=== PATIENT | female | born 1950 | race Caucasian/White ===

== ENCOUNTER 2016-12-03 07:44 | Inpatient (IN) | payer OTHER ==
[2016-11-27 09:49] VITALS: BMI 27.0
--- NOTE | 2016-11-27 10:21 | PAT Medication Instructions ---
Service Date Nov 27, 2016. Current Home Medication List Calcium Carbonate (Tums), 2 TAB PO QAM Calcium Carbonate (Tums), 2 TAB PO QAM Diclofenac Sodium (Voltaren), 75 MG PO BID Multivitamin (Multivitamin), 1 TAB PO QAM Tramadol (Ultram), 50 MG PO Q8H PRN for Pain Medication Instructions For Your Scheduled Surgery - Check with surgeon for instructions: Diclofenac Sodium (Voltaren), 75 MG PO BID - Hold the following medications the morning of surgery: Calcium Carbonate (Tums), 2 TAB PO QAM Calcium Carbonate (Tums), 2 TAB PO QAM Multivitamin (Multivitamin), 1 TAB PO QAM - Take the following medications the morning of surgery with a sip of water: Tramadol (Ultram), 50 MG PO Q8H PRN for Pain i(okay to take up to 4 hours prior to surgery if needed) - Take the following medications as scheduled the night before surgery: Tramadol (Ultram), 50 MG PO Q8H PRN for Pain (if needed) If you have any questions please call us at [phone] or [phone] or [phone]
--- NOTE | 2016-11-27 11:13 | DIAGNOSTIC IMAGING REPORT ---
CHEST PREADMISSION(PA/LAT) CLINICAL HISTORY: 66 years-old Female presenting with preoperative assessment. TECHNIQUE: PA and lateral views of the chest were obtained. COMPARISON: None. FINDINGS: Atherosclerosis of the aortic arch. Mild tortuosity of the descending thoracic aorta. Cardiac silhouette normal in size. Bandlike opacity at the lingula. No other focal infiltrate. Pleural spaces clear. Osseous structures normal. Upper abdomen normal. IMPRESSION: 1. Minimal lingular atelectasis may be present. No significant cardiopulmonary disease. Electronically signed by: Devante Mtz M.D. 11/27/2016 11:12 AM Dictated Date/Time: 11/27/2016 11:11 AM
[2016-11-27 11:46] LABS: BASO % 0.3 %; BASO ABS # 0.03 K/uL (0-0.2); COMPLETE YES; HEMATOCRIT 42.5 % (37-47); IG% 0.3 %; LYMPH % 22.2 %; LYMPH ABS # 2.63 K/uL (1.2-3.4); MEAN CELL VOLUME 94.4 fL (80-100); MEAN CORPUSCULAR HEMOGLOBIN 31.1 pg (25-34); MEAN CORPUSCULAR HGB CONC 32.9 g/dl (32-36); MEAN PLATELET VOLUME 9.2 fL (7.4-10.4); MONO % 7.4 %; NEUT % 66.8 %; PLATELET COUNT 389 K/uL (130-400); WHITE BLOOD COUNT 11.83 K/uL (4.8-10.8)
[2016-11-27 11:52] LABS: ESTIMATED AVERAGE GLUCOSE 105 mg/dl; HA1C FLAG Normal (Normal)
[2016-11-27 12:00] LABS: BUN/CREATININE RATIO 22.3 (10-20); CREATININE 0.68 mg/dl (0.60-1.20); POTASSIUM 4.5 mmol/L (3.5-5.1)
[2016-11-27 12:04] LABS: PARTIAL THROMBOPLASTIN RATIO 1.1; PROTHROMBIN TIME (PATIENT) 10.2 SECONDS (9.0-12.0)
[2016-11-27 12:29] LABS: URINE APPEARANCE TURBID (CLEAR); URINE BILIRUBIN NEG (NEG); URINE COLOR YELLOW; URINE EPITHELIAL CELL AUTO >30 /lpf (0-5); URINE NITRITE NEG (NEG); URINE SPECIFIC GRAVITY 1.017 (1.000-1.030); UROBILINOGEN NEG (NEG)
[2016-11-27 12:46] LABS: MANUAL MICROSCOPIC REQUIRED? NO; REVIEW REQ? NO; SULFASALICYLIC ACID POS (NEG)
--- NOTE | 2016-11-30 09:57 | HISTORY & PHYSICAL EXAMINATION ---
DATE OF ADMISSION: 12/03/2016 CHIEF COMPLAINT: Right hip pain. HISTORY OF PRESENT ILLNESS: The patient is a 66-year-old female with known osteoarthritis about her right hip. She takes Voltaren daily for pain with mild relief. She has pain with activities of daily living. She has pain with prolonged weightbearing and standing activities. She has difficulty with any kneeling, bending, or squatting activities. Due to ongoing pain and disability, the patient now desires to proceed with right total hip arthroplasty. PAST MEDICAL HISTORY: Osteoporosis, allergic rhinitis, and hyperlipidemia. PAST SURGICAL HISTORY: Appendectomy, wrist surgery, and LEEP procedure. MEDICATIONS: Senna/docusate 8.6/50 mg daily, Voltaren 75 mg twice daily, Centrum Silver ultra woman's daily, calcium plus D daily, and tramadol 50 mg q. 8 hours p.r.n. pain. ALLERGIES: No known drug allergies. SOCIAL HISTORY AND REVIEW OF SYSTEMS: Noncontributory. PHYSICAL EXAMINATION: GENERAL: Well-nourished and well-developed female, who appears her stated age. HEENT: Normocephalic and atraumatic. Extraocular movements intact. Oropharynx is pink and moist. NECK: Supple without adenopathy. LUNGS: Clear to auscultation bilaterally. HEART: Regular rate and rhythm. ABDOMEN: Soft, nontender, and nondistended. EXTREMITIES: The upper extremities are within normal limits. The right hip demonstrates limited range of motion. There is limitation of active and passive internal/external rotation with pain at end range. X-RAYS: X-rays were reviewed. She has severe osteoarthritis about the right hip with complete loss of the joint space. There is flattening of the femoral head. There is osteophyte formation about the femoral head and acetabulum. ASSESSMENT: Right hip degenerative joint disease. PLAN: Risks versus benefits were discussed. Consent was obtained. The patient's primary care physician is Dr. Nemesio Contreras from [facility] in [place]. We will proceed with right total hip arthroplasty upon preoperative workup and medical clearance.
[~2016-12-03] VITALS: Ht 162.6 cm; Wt 72.6 kg
[2016-12-03] VITALS (8 sets, daily range): BP systolic 97–134; BP diastolic 61–98; PULSE 75–96; TEMP 36.3–36.8; O2SAT 93–98; Ht 162.6 cm; Wt 72.6 kg
[~2016-12-03 07:44] MED LIST: ACETAMINOPHEN 500 MG TAB PO SCH; CALC500C3 PO; CEFAZOLIN 2000 MG/60 ML D5W 60 ML IV SCH; CeleBREX 200 MG CAP PO SCH; DEXAMETHASONE 4 MG TAB PO SCH; DICL75TA2 PO; FAMOTIDINE 20 MG TAB PO SCH; FENTANYL CITRATE INJ 50 MCG/1 ML 2 ML VIAL ONE; GABAPENTIN 300 MG CAP PO SCH; LACTATED RINGER'S 1000ML 1,000 ML IV SCH; LACTATED RINGER'S 1000ML IV SCH; LACTATED RINGER'S 500 ML IV SCH; METOCLOPRAMIDE HCL 10 MG TAB PO SCH; MIDAZOLAM HCL 1 MG/ML 2ML VIAL ONE; MULT-506 PO; ROPIVACAINE 5MG/ML 30 ML 150 MG, BUPIVACAINE/EPINEPHR 0.5% MPF 30 ML, KETOROLAC TROMETH... INFIL SCH; TRAM-10 PO; TRANEXAMIC ACID INJ 1,000 MG in SODIUM CHLORIDE 0.9% 100ML 100 ML IV SCH
[2016-12-03] MEDS ORDERED: BUPIVACAINE 0.5 % 5 MG/1 ML PF 10ML VIAL ONE (08:00)
[2016-12-03] MEDS ORDERED: ONDANSETRON INJ 2 MG/ML 2 ML VIAL IV PRN ×2 (08:00→12:00)
[2016-12-03] MEDS ORDERED: ATROPINE SULFATE 0.1 MG/ML 5ML SYR IV PRN (08:00)
[2016-12-03] MEDS ORDERED: EpHEDrine SULFATE INJ 50 MG/ML AMP IV PRN (08:00)
[2016-12-03] MEDS ORDERED: FENTANYL CITRATE INJ 50 MCG/1 ML 2 ML VIAL IV PRN (08:00)
[2016-12-03] MEDS ORDERED: CALC1CHW47 PO (08:09)
--- NOTE | 2016-12-03 08:39 | History & Physical Bridge Note ---
H&P Re-Evaluation Bridge Note: I have examined the patient, reviewed the History & Physical and in the interval since the performance of the History & Physical I have noted the following changes of clinical significance: No changes noted
[2016-12-03] MEDS ORDERED: ORTHO JOINT ANESTHETIC ONE (08:56)
[2016-12-03] MEDS ORDERED: POVIDONE-IODINE OP SOLN 30 ML BTL ONE (08:57)
[2016-12-03] MEDS ORDERED: BACITRACIN 50000 UNIT VIAL ONE (08:57)
[2016-12-03] MEDS ORDERED: MIDAZOLAM HCL 1 MG/ML 2ML VIAL ONE (10:40)
[2016-12-03] MEDS ORDERED: PROPOFOL IV EMULSION 10 MG/ML 20 ML VIAL IV ONE (10:48)
[2016-12-03] MEDS ORDERED: PHENYLEPHRINE 100MCG/ML 5ML SYR ONE (10:48)
[2016-12-03] MEDS ORDERED: EpHEDrine SULFATE 50MG/5ML SYR ONE (11:00)
--- NOTE | 2016-12-03 11:27 | [facility] Post Operative Brief Note ---
Immediate Operative Summary Operative Date Dec 03, 2016. Pre-Operative Diagnosis Right hip degenerative joint disease Post-Operative Diagnosis Right hip degenerative joint disease Procedure(s) Performed Right Total Hip Arthroplasty Surgeon Dr. Carr Torque Tester Surgeon(s) John Jarvis PA-C Estimated Blood Loss 150 ML Findings Severe OA with osteopenia Specimens a. right femoral head Complication(s) None Disposition Recovery Room / PACU
--- NOTE | 2016-12-03 11:44 | OPERATIVE REPORT ---
DATE OF OPERATION: 12/03/2016 PREOPERATIVE DIAGNOSIS: Osteoarthritis, right hip. POSTOPERATIVE DIAGNOSIS: Osteoarthritis, right hip. PROCEDURE: Right connective total hip arthroplasty. SURGEON: Dr. Carr. TIMBER TRIMMER: John Jarvis PA-C. ANESTHESIA: Spinal. COMPLICATIONS: None. IMPLANTS USED: Acetabular reamer used 52, acetabular shell 52, femoral stem 6 increased offset neck and femoral head +2.5 x 36 mm ceramic. DESCRIPTION OF PROCEDURE: Following induction of adequate spinal anesthesia, the patient was placed in left lateral decubitus position and right Arlette-Langenbeck incision was made. Subcutaneous tissue was sharply dissected. Electrocautery used for hemostasis. The fascia was incised throughout the length of the wound and a bar scissor placed beneath the short external rotators. The pyriformis was tagged with #1 Vicryl. The short external rotators were divided from the posterior aspect of the femur using electrocautery. These were swept posteriorly. A T-capsulotomy incision was made and the hip was dislocated using a combination of flexion, adduction, and internal rotation. Exposure of the femoral neck with old-style Hohmann and a blunt Hohmann was carried out and a femoral rasp was utilized as a guide for making the appropriate level femoral neck cut. This bone fragment was removed and reserved on the back table. Next, attention was turned to the acetabulum where bone hook was used to retract the femur while the offset retractors were placed anterior and posteriorly. A double-angled Hohmann was placed in superior and anterior position exposing the acetabulum nicely. Acetabular labrum as well as posterior capsule elements were removed using a long knife and a long pickup. Fovea centralis was cleared of all soft tissue. Sequential reamings were carried up to a 52 and decision was made to proceed with impaction of a 52 trabecular metal cup. This was impacted and held using a single 35 mm bone screw. The acetabular liner was placed with 15 of elevated posterior wall in the superior and posterior position. Next, attention was turned to the femoral portion of the case where a Bovie and pickup was used to further clear short external rotators from their insertion on the femur. Box osteotome was used to gain access to the femoral canal and the T-handled rasp and a rattail rasp were used to further open and lateral the canal. Sequentially raspings were carried up to a 6, which gave good fit and fill of the proximal femur. A trial reduction was carried out and 6 offset femoral neck component was chosen as the size to be used. A +2.5 x 36 mm femoral head was impacted into position, +0 head was utilized. The trial reduction was stable in all degrees of rotation with no [id number] impingement. The hip was dislocated. The trial components were removed and the final femoral stem, neck, and femoral head combination were assembled on the back table and impacted into position. Hip was relocated. Range of motion checked once again successful and the wound was irrigated. The pyriformis repaired to the greater trochanter using #1 Vicryl [id number] suture. A Hemovac drain was placed and the fascia was closed using #1 Vicryl, subcutaneous tissue was closed using 0 Dexon, and skin was closed with nazanin. Sterile dressing of Adaptic, 4 x 4's, ABDs, and foam tape was applied. The patient tolerated the procedure well. Due to the complex nature of the procedure, the entire surgery was performed with the operational assistance of John Jarvis PA-C. The digital sales assistant, under direct supervision, was involved in the actual performance of all aspects of the surgical procedure including hemostasis, tissue retraction and incision, instrument management, patient positioning, and wound closure. DISPOSITION: Recovery room stable. I attest to the content of the Intraoperative Record and any orders documented therein. Any exception s are noted below.
[2016-12-03] MEDS ORDERED: ALUMINUM/MAGNESIUM/SIMETH (MAALOX MAX) 30 ML UDC PO PRN (12:00)
[2016-12-03] MEDS ORDERED: METOCLOPRAMIDE HCL INJ 5 MG/ML 2 ML VIAL IV PRN (12:00)
[2016-12-03] MEDS ORDERED: MAGNESIUM HYDROXIDE SUSP 30 ML UDC PO PRN (12:00)
[2016-12-03] MEDS ORDERED: MoRPHine SULFATE 2 MG/ML CARP IV PRN (12:00)
[2016-12-03] MEDS ORDERED: ZOLPIDEM TARTRATE 5 MG TAB PO PRN (12:00)
--- NOTE | 2016-12-03 13:07 | DIAGNOSTIC IMAGING REPORT ---
SINGLE VIEW PELVIS; SINGLE VIEW right HIP CLINICAL HISTORY: Postoperative examination. FINDINGS: An AP portable view of the hips and pelvis with a crosstable lateral portable view of the right hip are obtained. A bipolar right hip arthroplasty is in near-anatomic alignment. At least 2 cortical lag screws transfix the acetabular cup. No acute fracture is identified. There are expected postoperative changes overlying the right hip including subcutaneous gas, a surgical drain, and soft tissue swelling. IMPRESSION: Expected postoperative findings status post right hip arthroplasty. No acute fracture is seen. Electronically signed by: Buzz Lockhart M.D. 12/03/2016 1:06 PM Dictated Date/Time: 12/03/2016 1:03 PM
--- NOTE | 2016-12-03 13:15 | Anesthesiology Progress Note ---
Anesthesia Post Op Note Date & Time Dec 03, 2016 at 13:14 Vital Signs Pain Intensity: 0 Vital Signs Past 12 Hours Date Time Temp Pulse Resp B/P (MAP) Pulse Ox O2 Delivery O2 Flow Rate FiO2 12/03/16 12:37 78 21 99 12/03/16 12:37 78 21 12/03/16 12:36 116/74 12/03/16 12:32 81 17 98 12/03/16 12:32 81 17 12/03/16 12:31 114/84 12/03/16 12:27 75 14 99 12/03/16 12:27 76 14 12/03/16 12:25 123/61 12/03/16 12:22 78 18 100 12/03/16 12:22 79 18 12/03/16 12:20 108/79 12/03/16 12:17 73 14 100 12/03/16 12:17 74 14 12/03/16 12:16 81 22 12/03/16 12:16 82 22 100 12/03/16 12:15 116/67 12/03/16 12:11 75 15 125/77 100 12/03/16 12:11 77 15 12/03/16 12:06 76 17 12/03/16 12:06 76 17 100 12/03/16 12:05 131/81 12/03/16 12:04 73 16 99 12/03/16 12:04 74 16 12/03/16 12:00 125/79 12/03/16 11:59 84 19 95 12/03/16 11:59 83 19 12/03/16 11:55 113/75 12/03/16 11:54 36.6 89 16 106/76 97 Nasal Cannula 2 12/03/16 11:54 82 13 106/76 96 12/03/16 11:54 81 13 12/03/16 08:11 36.8 75 20 125/98 98 Room Air Notes Mental Status: alert / awake / arousable, participated in evaluation Pt Amnestic to Procedure: Yes Nausea / Vomiting: adequately controlled Pain: adequately controlled Airway Patency, RR, SpO2: stable & adequate BP & HR: stable & adequate Hydration State: stable & adequate Neuraxial Anesthesia: was administered, sensory block is resolving Anesthetic Complications: no major complications apparent
[2016-12-03] MEDS ORDERED: MoRPHine SULFATE 4 MG/ML 1 ML CARP\\VIAL IV PRN (13:30)
[2016-12-03] MEDS ORDERED: MoRPHine SULFATE 10 MG/ML CARP/VIAL IV PRN (13:30)
[2016-12-03] MEDS: D5W AND 1/2NSS + 20MEQ KCL 1,000 ML IV SCH (15:11)
[2016-12-03] MEDS: KETOROLAC TROMETHAMINE 15 MG/ML VIAL IV. SCH ×2 (15:54→21:38)
[2016-12-03] MEDS: FERROUS GLUCONATE 324 MG TAB PO SCH (17:44)
[2016-12-03] MEDS: CEFAZOLIN IV 1,000 MG in DEXTROSE 5% 50ML 50 ML IV SCH (17:45)
[2016-12-03] MEDS: OXYCODONE HCL IR 5 MG TAB (IMMEDIATE RELEASE) PO PRN (19:50)
[2016-12-03] MEDS: PREGABALIN 75 MG CAP PO SCH (21:12)
[2016-12-03] MEDS: ASPIRIN 81 MG ECTAB PO SCH (21:13)
[2016-12-03] MEDS: DOCUSATE SODIUM 100 MG CAP PO SCH (21:13)
[2016-12-03] MEDS: ACETAMINOPHEN 500 MG TAB PO SCH (21:38)
[2016-12-04] MEDS: D5W AND 1/2NSS + 20MEQ KCL 1,000 ML IV SCH ×2 (00:14→12:28)
[2016-12-04] MEDS: CEFAZOLIN IV 1,000 MG in DEXTROSE 5% 50ML 50 ML IV SCH (02:07)
[2016-12-04 03:10] VITALS: BP 107/67; PULSE 81; TEMP 36.7; O2SAT 94
[2016-12-04] MEDS: KETOROLAC TROMETHAMINE 15 MG/ML VIAL IV. SCH ×2 (03:16→10:12)
[2016-12-04] MEDS: ACETAMINOPHEN 500 MG TAB PO SCH ×3 (05:45→21:49)
[2016-12-04 05:52] LABS: BASO % 0.1 %; BASO ABS # 0.01 K/uL (0-0.2); COMPLETE YES; EOS % 0.2 %; HEMATOCRIT 31.9 % (37-47); IG% 0.5 %; LYMPH % 10.9 %; LYMPH ABS # 1.79 K/uL (1.2-3.4); MEAN CELL VOLUME 91.7 fL (80-100); MEAN CORPUSCULAR HGB CONC 33.9 g/dl (32-36); MONO % 13.5 %; NEUT % 74.8 %; PLATELET COUNT 335 K/uL (130-400); RED BLOOD COUNT 3.48 M/uL (4.2-5.4); WHITE BLOOD COUNT 16.47 K/uL (4.8-10.8)
[2016-12-04] MEDS ORDERED: ROPIVACAINE 5MG/ML 30 ML 150 MG, BUPIVACAINE/EPINEPHR 0.5% MPF 30 ML, KETOROLAC TROMETH... INFIL SCH ×7 (06:00)
[2016-12-04 06:36] LABS: BUN/CREATININE RATIO 18.5 (10-20); CALCIUM 8.3 mg/dl (8.5-10.1); CREATININE 0.84 mg/dl (0.60-1.20); POTASSIUM 4.2 mmol/L (3.5-5.1)
[2016-12-04 07:20] VITALS: BP 117/74; PULSE 75; TEMP 36.8; O2SAT 99
[2016-12-04] MEDS ORDERED: DEXAMETHASONE INJ 10 MG in SYRINGE 0 ML IV SCH (07:30)
[2016-12-04] MEDS: ASPIRIN 81 MG ECTAB PO SCH ×2 (09:08→20:40)
[2016-12-04] MEDS: DOCUSATE SODIUM 100 MG CAP PO SCH ×2 (09:08→20:40)
[2016-12-04] MEDS: FERROUS GLUCONATE 324 MG TAB PO SCH ×3 (09:08→17:15)
[2016-12-04] MEDS: PANTOprazole SOD 40 MG TAB PO SCH (09:09)
[2016-12-04] MEDS: PREGABALIN 75 MG CAP PO SCH ×2 (09:09→20:41)
[2016-12-04] MEDS: MULTIVITAMIN TAB PO SCH (09:09)
[2016-12-04] MEDS: OXYCODONE HCL IR 5 MG TAB (IMMEDIATE RELEASE) PO PRN ×3 (09:10→21:49)
--- NOTE | 2016-12-04 09:25 | Orthopedic Progress Note ---
Orthopedic Progress Note Date of Service Dec 04, 2016. Subjective Post OP Day: 1 Reports: feeling well, Denies: chest pain, SOB, nausea / vomiting, light headedness, calf pain Objective calves soft nontender, N/V intact, hip located, dressing C/D/I, A&O x3, toes mobile, hemovac drainage (115/50cc per shift) Date Time Temp Pulse Resp B/P (MAP) Pulse Ox O2 Delivery O2 Flow Rate FiO2 12/04/16 07:50 Room Air 12/04/16 07:20 36.8 75 16 117/74 (88) 99 Room Air 12/04/16 03:10 36.7 81 16 107/67 (80) 94 Room Air 12/04/16 00:15 Room Air 12/03/16 23:03 36.8 79 16 97/61 (73) 96 Room Air 12/03/16 19:35 36.8 91 16 117/74 (88) 96 Room Air 12/03/16 17:00 96 16 134/77 (96) 12/03/16 16:05 36.5 94 16 115/79 (91) 94 Room Air 12/03/16 15:21 Room Air 12/03/16 14:30 36.6 76 16 121/83 (96) 95 Room Air 12/03/16 13:59 36.3 84 16 121/81 (94) 93 Room Air 12/03/16 13:30 36.4 85 16 131/77 (95) 97 Nasal Cannula 2.0 12/03/16 13:30 Nasal Cannula 2.0 12/03/16 13:30 Nasal Cannula 2.0 12/03/16 13:25 36.6 108/70 12/03/16 13:23 83 17 99 12/03/16 13:23 82 17 12/03/16 13:21 116/73 12/03/16 13:18 84 15 99 12/03/16 13:18 81 15 12/03/16 13:15 114/67 12/03/16 13:13 91 26 99 12/03/16 13:13 89 26 12/03/16 13:10 117/77 12/03/16 13:08 82 16 12/03/16 13:08 81 16 99 12/03/16 13:05 117/76 12/03/16 13:03 80 16 12/03/16 13:03 79 16 99 12/03/16 13:00 96/80 12/03/16 12:58 82 19 12/03/16 12:58 81 19 99 12/03/16 12:55 107/71 12/03/16 12:53 82 16 99 12/03/16 12:53 82 16 12/03/16 12:50 102/84 12/03/16 12:48 78 22 99 12/03/16 12:48 78 22 12/03/16 12:46 120/77 12/03/16 12:43 80 14 12/03/16 12:43 80 14 99 12/03/16 12:40 125/79 12/03/16 12:38 79 18 12/03/16 12:38 79 18 99 12/03/16 12:37 78 21 99 12/03/16 12:37 78 21 12/03/16 12:36 116/74 12/03/16 12:32 81 17 98 12/03/16 12:32 81 17 12/03/16 12:31 114/84 12/03/16 12:27 75 14 99 12/03/16 12:27 76 14 12/03/16 12:25 123/61 12/03/16 12:22 78 18 100 12/03/16 12:22 79 18 12/03/16 12:20 108/79 12/03/16 12:17 73 14 100 12/03/16 12:17 74 14 12/03/16 12:16 81 22 12/03/16 12:16 82 22 100 12/03/16 12:15 116/67 12/03/16 12:11 75 15 125/77 100 12/03/16 12:11 77 15 12/03/16 12:06 76 17 12/03/16 12:06 76 17 100 12/03/16 12:05 131/81 12/03/16 12:04 73 16 99 12/03/16 12:04 74 16 12/03/16 12:00 125/79 12/03/16 11:59 84 19 95 12/03/16 11:59 83 19 12/03/16 11:55 113/75 12/03/16 11:54 36.6 89 16 106/76 97 Nasal Cannula 2 12/03/16 11:54 82 13 106/76 96 12/03/16 11:54 81 13 Laboratory Results 24 Hours: Test 12/04/16 05:08 White Blood Count 16.47 K/uL Red Blood Count 3.48 M/uL Hemoglobin 10.8 g/dL Hematocrit 31.9 % Mean Corpuscular Volume 91.7 fL Mean Corpuscular Hemoglobin 31.0 pg Mean Corpuscular Hemoglobin Concent 33.9 g/dl Platelet Count 335 K/uL Mean Platelet Volume 9.0 fL Neutrophils (%) (Auto) 74.8 % Lymphocytes (%) (Auto) 10.9 % Monocytes (%) (Auto) 13.5 % Eosinophils (%) (Auto) 0.2 % Basophils (%) (Auto) 0.1 % Neutrophils # (Auto) 12.34 K/uL Lymphocytes # (Auto) 1.79 K/uL Monocytes # (Auto) 2.22 K/uL Eosinophils # (Auto) 0.03 K/uL Basophils # (Auto) 0.01 K/uL Assessment & Plan Assessment: POD#1 sp right LIZZ Inhouse Planning Pain Management: Celebrex, PO Tylenol, Oxy IR DVT Prophylaxis: TEDs, SCDs, ASA Discharge Planning Discharge Planning: home with home health ([facility]
[2016-12-04 12:50] VITALS: BP 155/84; PULSE 81; TEMP 36.9; O2SAT 93
[2016-12-04 15:02] VITALS: BP 104/65; PULSE 69; TEMP 36.6; O2SAT 96
[2016-12-04] MEDS: CeleBREX 200 MG CAP PO SCH (20:41)
[2016-12-04 23:02] VITALS: BP 114/77; PULSE 74; TEMP 36.8; O2SAT 98
[2016-12-05] MEDS: ACETAMINOPHEN 500 MG TAB PO SCH (06:19)
[2016-12-05] MEDS: OXYCODONE HCL IR 5 MG TAB (IMMEDIATE RELEASE) PO PRN (06:19)
[2016-12-05 07:04] VITALS: BP 124/83; PULSE 70; TEMP 36.9; O2SAT 95
--- NOTE | 2016-12-05 07:35 | Orthopedic Progress Note ---
Orthopedic Progress Note Date of Service Dec 05, 2016. Subjective Post OP Day: 2 Reports: feeling well, Denies: chest pain, SOB, nausea / vomiting, light headedness, calf pain Objective calves soft nontender, N/V intact, hip located, dressing C/D/I (SILVERLON), A&O x3, toes mobile Date Time Temp Pulse Resp B/P (MAP) Pulse Ox O2 Delivery O2 Flow Rate FiO2 12/05/16 07:04 36.9 70 16 124/83 (97) 95 Room Air 12/04/16 23:40 Room Air 12/04/16 23:02 36.8 74 16 114/77 (89) 98 Room Air 12/04/16 15:30 Room Air 12/04/16 15:02 36.6 69 16 104/65 (78) 96 Room Air 12/04/16 12:50 36.9 81 16 155/84 (107) 93 Room Air 12/04/16 07:50 Room Air Assessment & Plan Assessment: POD#2 sp right LIZZ Inhouse Planning Pain Management: Celebrex, PO Tylenol, Oxy IR DVT Prophylaxis: TEDs, SCDs, ASA Discharge Planning Discharge Planning: home with home health ([facility]
[2016-12-05] MEDS ORDERED: ACET-24 PO (07:40)
[2016-12-05] MEDS ORDERED: ONDA8TAB6 PO (07:40)
[2016-12-05] MEDS ORDERED: CLB200 PO (07:40)
[2016-12-05] MEDS ORDERED: ASPEC81 PO (07:40)
[2016-12-05] MEDS ORDERED: RXC5 PO (07:40)
--- NOTE | 2016-12-05 07:41 | Discharge Instructions ---
Discharge Instructions Date of Service Dec 05, 2016. Admission Reason for Admission: Right Hip Osteoarthritis Discharge Discharge Diagnosis / Problem: SP RIGHT LIZZ Discharge Goals Goal(s): Decrease discomfort, Improve function, Increase independence Activity Recommendations Activity Limitations: per Instructions/Follow-up section . Instructions / Follow-Up Instructions / Follow-Up ACTIVITY RECOMMENDATIONS: SELF CARE INSTRUCTIONS AFTER TOTAL HIP REPLACEMENT Until the incision and soft tissues around your hip have healed, there is a possibility that the hip prosthesis could dislocate. A. Observe the following precautions to prevent dislocation: 1. Don't bend your hip greater than 90 degrees. 2. Avoid crossing your legs or ankles while standing or lying. 3. Sit with your feet placed 6 inches apart. 4. When sitting, keep your knees below your hips. Sit on a firm surface, avoid deep, soft chairs and couches. Use an elevated toilet seat in the bathroom. 5. Don't bend over at the waist. Use a long handled shoehorn and a sock aid to help you put on your shoes and socks. A consulting systems engineer can help you picking supervisor objects that are too high or too low to reach. 6. Keep car riding to a minimum for at least one month after surgery. B. Your balance may be shaky for a while. Use crutches or a walker until directed by your doctor. C. Use hand rails when walking on stairs. D. Wear low heeled shoes with non-slip soles. E. Be sure that your floors are free of things that could trip you - throw rugs , electrical cords, small objects. Avoid wet and waxed floors, especially with crutches and canes. F. Try to walk several times a day with rest periods between. G. Continue with all the exercises taught to you in the hospital. Again, make walking a part of your daily routine. SPECIAL CARE INSTRUCTIONS: VERY IMPORTANT TO READ AND REVIEW A. You may still be at risk for phlebitis and blood clots. 1. Wear surgical stockings (JOSE MANUEL hose) for 2 weeks after surgery to improve circulation and reduce swelling. 2. Take Aspirin 81mg twice daily for 4 weeks or as directed by your doctor. This is your blood thinner. 3. High risk patients may be prescribed a stronger blood thinner if necessary. 4. If you are on Coumadin normally, your family doctor/home attendant should monitor your blood work. Expect a phone call the day of or the day after bloodwork is drawn to adjust your dosage. B. You must take antibiotics before having dental work, bladder, bowel and other surgery. Your doctor will provide you with a permanent card to carry describing precautions. C. Call [facility] if you have a fever, redness or swelling around the incision, cloudy drainage from incision, or sudden increase in pain in your hip, not relieved by your regular pain medication. D. Please call the office at if you have any concerns or questions about your operation or recovery. * YOU MAY SHOWER, NO TUB BATHS UNTIL CLEARED BY YOUR DOCTOR. * WEAR JOSE MANUEL HOSE 20 HOURS PER DAY FOR 2 WEEKS. * YOU SHOULD USE A WALKER OR CRUTCHES FOR 2-4 WEEKS. THIS WILL HELP PREVENT STRAIN ON YOUR HIP MUSCLE AND ALLOW IT TO HEAL PROPERLY. YOU MAY WEAN TO A CANE TOLERATED. * MOST PATIENTS WILL HAVE HOME NURSING FOR THERAPY. IF YOU DECIDE TO DO OUTPATIENT PHYSICAL THERAPY, PLEASE SCHEDULE THIS 3 TIMES PER WEEK. * YOU MAY HAVE A LARGE, BAND-ANA LIKE DRESSING (SILVERON). THIS WILL REMAIN ON YOUR INCISION FOR 7 DAYS, THEN CAN BE REMOVED. IF INCISION IS LEAKING THROUGH DRESSING, PLEASE CALL THE OFFICE . FOLLOW UP VISIT: If appointment is not already scheduled: Please call [facility] to make a follow-up appointment for 2 weeks after your surgery at . Current Hospital Diet Patient's current hospital diet: Regular Diet Discharge Diet Recommended Diet: Regular Diet Procedures Procedures Performed: Right Total Hip Arthroplasty Pending Studies Studies pending at discharge: no Laboratory Results Hemoglobin A1c Test 11/27/16 11:34 Range/Units Estimated Average Glucose 105 mg/dl Hemoglobin A1c 5.3 4.5-5.6 % Medical Emergencies . Who to Call and When: Medical Emergencies: If at any time you feel your situation is an emergency, please call 911 immediately. . Non-Emergent Contact Non-Emergency issues call your: Surgeon . "Provider Documentation" section prepared by Liss Bustillo. . VTE Core Measure Inpt VTE Proph given/why not?: Other Anticoagulation, T.E.D. Stockings, SCD's
[2016-12-05] MEDS: CeleBREX 200 MG CAP PO SCH (08:44)
[2016-12-05] MEDS: PREGABALIN 75 MG CAP PO SCH (08:44)
[2016-12-05] MEDS: MULTIVITAMIN TAB PO SCH (08:44)
[2016-12-05] MEDS: PANTOprazole SOD 40 MG TAB PO SCH (08:44)
[2016-12-05] MEDS: FERROUS GLUCONATE 324 MG TAB PO SCH (08:45)
[2016-12-05] MEDS: DOCUSATE SODIUM 100 MG CAP PO SCH (08:45)
[2016-12-05] MEDS: ASPIRIN 81 MG ECTAB PO SCH (08:45)
[2016-12-05 09:34] VITALS: BP 124/83; PULSE 70; TEMP 36.9; O2SAT 95
--- NOTE | 2016-12-14 17:45 | DISCHARGE SUMMARY ---
CHIEF COMPLAINT: Right hip pain. Please see complete history and physical examination. HOSPITAL COURSE: The patient underwent right total hip arthroplasty without complication. She tolerated the procedure well and was discharged to recovery room in stable condition. Her postoperative course was relatively uneventful. Her postoperative pain was reasonably well controlled with a combination of spinal anesthesia, intraoperative joint injection, IV, and oral pain medications. She was started on aspirin for DVT prophylaxis. She also utilized JOSE MANUEL stockings and SCDs for additional prophylaxis. Her H&H was stable and did not require transfusion. Her surgical drain was discontinued by postoperative day 2, her surgical dressing will remain in place for approximately 7 days postoperative. She tolerated postop physical therapy reasonably well where she was ambulating and transferring appropriately. She was observing all total hip precautions. She was discharged home on postoperative day 2. She will continue her physical therapy at home. She will continue her aspirin for DVT prophylaxis and follow up in our office in approximately 10-14 days for initial postop evaluation.
[2017-01-24] MEDS ORDERED: NAPR1TAB9 PO (07:36)
== END 2016-12-05 11:05 | disposition home health service (06) | DRG 470 ==
LOC: C.ACU 07:44 → C.3E 08:35 → ENRESERV 13:16
PROC: 0SR90JZ Replacement of Right Hip Joint with Synthetic Substitute, Open Approach (ICD-10-PCS; principal; 2016-12-03 10:15)
DX: M16.11 Unilateral primary osteoarthritis, right hip (principal); M81.0 Age-related osteoporosis without current pathological fracture; Z79.899 Other long term (current) drug therapy

== ENCOUNTER → 2017-02-11 | Outpatient (CLI) | payer OTHER ==
[~2017-02-11] MED LIST changes: -ACETAMINOPHEN 500 MG TAB PO SCH; +CALC1CHW47 PO; -CEFAZOLIN 2000 MG/60 ML D5W 60 ML IV SCH; -CeleBREX 200 MG CAP PO SCH; -DEXAMETHASONE 4 MG TAB PO SCH; -DICL75TA2 PO; -FAMOTIDINE 20 MG TAB PO SCH; -FENTANYL CITRATE INJ 50 MCG/1 ML 2 ML VIAL ONE; -GABAPENTIN 300 MG CAP PO SCH; -LACTATED RINGER'S 1000ML 1,000 ML IV SCH; -LACTATED RINGER'S 1000ML IV SCH; -LACTATED RINGER'S 500 ML IV SCH; -METOCLOPRAMIDE HCL 10 MG TAB PO SCH; -MIDAZOLAM HCL 1 MG/ML 2ML VIAL ONE; +NAPR1TAB9 PO; +ONDA8TAB6 PO; -ROPIVACAINE 5MG/ML 30 ML 150 MG, BUPIVACAINE/EPINEPHR 0.5% MPF 30 ML, KETOROLAC TROMETH... INFIL SCH; -TRAM-10 PO; -TRANEXAMIC ACID INJ 1,000 MG in SODIUM CHLORIDE 0.9% 100ML 100 ML IV SCH
[2017-02-11 12:46] LABS: BASO % 0.6 %; BASO ABS # 0.05 K/uL (0-0.2); COMPLETE YES; EOS % 4.3 %; IG% 0.2 %; LYMPH % 28.6 %; LYMPH ABS # 2.31 K/uL (1.2-3.4); MEAN CELL VOLUME 91.3 fL (80-100); MEAN CORPUSCULAR HEMOGLOBIN 29.2 pg (25-34); MEAN PLATELET VOLUME 9.2 fL (7.4-10.4); MONO % 10.8 %; NEUT % 55.5 %; PLATELET COUNT 377 K/uL (130-400); RED BLOOD COUNT 4.93 M/uL (4.2-5.4); WHITE BLOOD COUNT 8.09 K/uL (4.8-10.8)
[2017-02-11 12:53] LABS: INR 0.9 (0.9-1.1)
[2017-02-11 13:16] LABS: ESTIMATED AVERAGE GLUCOSE 100 mg/dl; HA1C FLAG Normal (Normal)
[2017-02-11 13:24] LABS: BLOOD UREA NITROGEN 17 mg/dl (7-18); BUN/CREATININE RATIO 19.8 (10-20); CARBON DIOXIDE 27 mmol/L (21-32); CHLORIDE 104 mmol/L (98-107); CREATININE 0.85 mg/dl (0.60-1.20); GLUCOSE 86 mg/dl (70-99); POTASSIUM 3.9 mmol/L (3.5-5.1); SODIUM 138 mmol/L (136-145)
[2017-02-11 18:02] LABS: MANUAL MICROSCOPIC REQUIRED? NO; REVIEW REQ? NO; URINE APPEARANCE CLEAR (CLEAR); URINE BILIRUBIN NEG (NEG); URINE COLOR YELLOW; URINE EPITHELIAL CELL AUTO >30 /lpf (0-5); URINE NITRITE NEG (NEG); UROBILINOGEN NEG (NEG); ZZUR CULT IF INDIC CLEAN CATCH NO
--- NOTE | 2017-02-20 07:10 | CODING QUERY MEDICAL NECESSITY ---
SUPPORTING DIAGNOSIS NEEDED A supporting diagnosis is required for the test/procedure performed on this patient in order for us to be reimbursed by the patient's insurance. Please provide a supporting diagnosis for the following test/procedure listed below next to the test name along with your signature. *If there is no additional diagnosis for this patient that would support the following test/procedure please document that below next to the test/procedure. Test(s)/Procedure(s) that require a supporting diagnosis: * HEMOGLOBIN A1C DIAGNOSIS: Provider Signature: Date: Thank you [employer] Once completed, please kindly fax back to [phone] For questions please call [phone]
== END | disposition home or self-care (01) ==
LOC: C.LABMFLN 08:26
DX: Z01.818 Encounter for other preprocedural examination (principal)

== ENCOUNTER 2017-02-25 09:49 | Inpatient (IN) | payer OTHER ==
[2017-01-24 07:39] VITALS: BMI 27.0
--- NOTE | 2017-02-22 12:33 | HISTORY & PHYSICAL EXAMINATION ---
DATE OF ADMISSION: 02/25/2017 CHIEF COMPLAINT: Left knee pain. HISTORY OF PRESENT ILLNESS: The patient is a 66-year-old female with known osteoarthritis about her bilateral knees, left worse than right. She had a recent right total hip arthroplasty, which has done well. She has had a previous corticosteroid injection in her knees. Due to ongoing pain and disability with daily activities, she now desires to proceed with left total knee arthroplasty. PAST MEDICAL HISTORY: Osteoporosis, allergic rhinitis, hearing loss, osteoarthritis, hyperlipidemia. PAST SURGICAL HISTORY: Appendectomy, hip replacement as above, wrist surgery, LEEP procedure. MEDICATIONS: Hydrochlorothiazide 12.5 mg daily, Centrum Silver, women's vitamin daily, calcium plus D 500-400 daily, [id number]-[id number] senna once daily, Tylenol p.r.n. pain. ALLERGIES: No known drug allergies. SOCIAL HISTORY AND REVIEW OF SYSTEMS: Noncontributory. PHYSICAL EXAMINATION: GENERAL: Well-nourished, well-developed female who appears stated age. HEENT: Normocephalic and atraumatic, extraocular movements intact, oropharynx pink and moist. NECK: Supple without adenopathy. LUNGS: Clear to auscultation bilaterally. HEART: Regular rate and rhythm. ABDOMEN: Soft, nontender, and nondistended. EXTREMITIES: The upper extremities are within normal limits. The left knee shows a valgus alignment. Her range of motion is approximately 0-120 degrees. Mild crepitus with range of motion. X-RAYS: X-rays were reviewed. She has valgus aligned knees. She has vilm-fr-[id number] arthritis of the lateral compartment with a complete loss of the joint space. There is lateral osteophyte formation. She has [id number] degenerative change about the patellofemoral joint. ASSESSMENT: Left knee degenerative joint disease. PLAN: Risks versus benefits were discussed. Consent was obtained. The patient's primary care physician is Dr. Contreras from [facility]. We will proceed with left total knee arthroplasty as indicated.
[2017-02-25] VITALS (8 sets, daily range): BP systolic 95–143; BP diastolic 58–92; PULSE 66–83; TEMP 36.4–36.8; O2SAT 93–99; Ht 162.6 cm; Wt 72.7 kg
[~2017-02-25] VITALS: Ht 162.6 cm; Wt 72.7 kg
[2017-02-25] MEDS: TRANEXAMIC ACID INJ 1,000 MG in SYRINGE 0 ML IV SCH ×2 (06:00→06:30)
[~2017-02-25 09:49] MED LIST changes: +ACETAMINOPHEN 500 MG TAB PO SCH; +BUPIVACAINE 0.25% 30 ML VIAL ONE; +BUPIVACAINE 0.5 % 5 MG/1 ML PF 10ML VIAL ONE; +CEFAZOLIN 1000MG IV PUSH 5 ML IV SCH; +CeleBREX 200 MG CAP PO SCH; +DEXAMETHASONE 4 MG TAB PO SCH; +DEXAMETHASONE SOD INJ 4 MG/ML VIAL ONE; +EpINEphrine INJ 1MG/ML AMP 1 MG/ML AMP ONE; +FAMOTIDINE 20 MG TAB PO SCH; +GABAPENTIN 300 MG CAP PO SCH; +LACTATED RINGER'S 1000ML 1,000 ML IV SCH; +LACTATED RINGER'S 1000ML IV SCH; +METOCLOPRAMIDE HCL 10 MG TAB PO SCH; +MISSING PHYSICIAN SIGNATURE ON ORDER SCH; +OXYCODONE HCL 10 MG TABCR (OXYCONTIN) PO SCH; +ROPIVACAINE 5MG/ML 30 ML 150 MG, BUPIVACAINE 0.5% MPF INJ 30 ML, EpINEphrine HCL INJ 0.... INFIL SCH
[2017-02-25] MEDS ORDERED: HYZ/50125 PO (10:20)
[2017-02-25] MEDS ORDERED: MIDAZOLAM HCL 1 MG/ML 2ML VIAL ONE ×2 (11:02→11:58)
[2017-02-25] MEDS ORDERED: PROPOFOL IV EMULSION 10 MG/ML 20 ML VIAL IV ONE (11:02)
[2017-02-25] MEDS ORDERED: LIDOCAINE HCL 2% 2 ML VIAL (20MG/ML) ONE (11:02)
[2017-02-25] MEDS ORDERED: POVIDONE-IODINE OP SOLN 30 ML BTL ONE (11:26)
[2017-02-25] MEDS ORDERED: BACITRACIN 50000 UNIT VIAL ONE (11:27)
[2017-02-25] MEDS ORDERED: ATROPINE SULFATE 0.1 MG/ML 5ML SYR IV PRN (11:30)
[2017-02-25] MEDS ORDERED: EpHEDrine SULFATE INJ 50 MG/ML AMP IV PRN (11:30)
[2017-02-25] MEDS ORDERED: ONDANSETRON INJ 2 MG/ML 2 ML VIAL IV PRN ×2 (11:30→13:30)
[2017-02-25] MEDS ORDERED: PHENYLEPHRINE 100MCG/ML 5ML SYR ONE (12:20)
[2017-02-25] MEDS ORDERED: PHENYLEPHRINE HCL INJ 10 MG/ML VIAL ONE (12:28)
--- NOTE | 2017-02-25 12:45 | [facility] Post Operative Brief Note ---
Immediate Operative Summary Operative Date Feb 25, 2017. Pre-Operative Diagnosis Left Knee Degenerative Joint Disease Post-Operative Diagnosis Left Knee Degenerative Joint Disease Procedure(s) Performed Left Total Knee Arthroplasty Surgeon Dr. Carr Terrazzo Tile Setter Surgeon(s) GAMALIEL Hoyt Estimated Blood Loss 1occ Findings severe OA Specimens A. Left Knee Bone and Tissue Complication(s) None Disposition Recovery Room / PACU
--- NOTE | 2017-02-25 13:10 | OPERATIVE REPORT ---
DATE OF OPERATION: 02/25/2017 PREOPERATIVE DIAGNOSIS: Osteoarthritis, left knee. POSTOPERATIVE DIAGNOSIS: Osteoarthritis, left knee. PROCEDURE: Left total knee arthroplasty. SURGEON: Dr. Carr. SYSTEM CONSULTANT: GAMALIEL Hoyt ANESTHESIA: Spinal. COMPLICATIONS: None. IMPLANTS USED: Femoral size 4, tibia size 3, tibial poly 13, and patella size 33. OPERATION AND FINDINGS: Following induction of spinal anesthesia, the patient's left leg was prepped and draped in the usual sterile manner. Limb was exsanguinated with an Esmarch bandage and tourniquet was inflated to 350 mmHg. A longitudinal incision was made anteriorly. Subcutaneous tissue was sharply dissected. Electrocautery was used for hemostasis. Prepatellar bursa was incised and median parapatellar incision was performed. Patella was everted and the knee was flexed. Fat pad was removed to aid in visualization and the anterior and posterior cruciate ligaments were removed. The medial face of the tibia was cleared of soft tissue first with a Bovie and a Puga elevator. This tissue was retracted posteriorly using a blunt Hohmann. A Allen retractor was used to expose the synovium above on the anterior aspect of the femur and this was removed down to bone. The PSI guide was placed on the distal femur and two pins were placed anteriorly and kept in position and two additional pins were placed distally and removed. The distal femoral cutting block was placed in position and the distal femoral cut was used in the +0 setting. Next, the cutting block was removed and the femoral 4 block was placed in the distal end of the femur. Care was taken to ensure appropriate external rotation and feeler gauge was used to ensure no notching would occur. The femoral block was centered on the distal femur and in the medial and lateral direction and was fixed using two bone screws. The gold pins were then removed. The oscillating saw was used to create the bone cuts and the distal femoral cutting block was removed and the reciprocating saw was used to further trim the femoral cuts as well as a deep in the area for the trochlear groove. Next, posterior condyle remnants were removed. Following this, a meniscal clamp and knife were utilized to remove the anterior portion of both medial and lateral meniscus. The proximal tibia PSI guide was placed into position and the proximal tibial cutting guide was screwed into position. The extra medullary alignment guide was utilized to ensure appropriate alignment. The proximal tibia was cut and the proximal tibial cutting block was removed and this bone fragment was removed. The appropriate guide was used to perform the notch cut on the distal femur and a lamina insurance investigator and a cochlear knife were utilized to finish both medial and lateral meniscectomies to remove any remnants of the posterior or anterior cruciate ligaments. Following this, the distal femoral component was impacted into position and blunt Ned was used to sublux the tibia anteriorly. The proximal tibia was sized and a 3 tibial tray was chosen as the size to be used. This was put into position and appropriate external rotation and a double check with extramedullary alignment guide was performed. The canal for the tibial stem was prepared first with a 17 mm drill and then the punch and a mallet and the trial tibial poly was placed. A 13 was chosen the size to be used. It was brought to extension and the patella was prepared with the patellar reamer. A 33 component was chosen the size to be used. The trial component was placed and knee was taken through a full range of motion and there was found to be no lateral subluxation of the tibia. No lateral release was required. The trials were all removed. The final components were obtained and assembled. Cement was mixed. The knee was thoroughly irrigated and the ortho mix was injected about the knee joint. The final components were cemented into position. After thoroughly suctioning and drying the bone ends, all excess cement was removed. The knee was held in extension while the cement hardened. The wound was irrigated and closed over a Hemovac drain. #1 Vicryl was used to close the extensor mechanism. Subcutaneous tissues closed using 0 Dexon. Skin was closed with nazanin. Sterile dressing of Adaptic, 4 x 4's, sterile Webril, and Sae was applied. The patient tolerated the procedure well. Due to the complex nature of the procedure, the entire surgery was performed with the operational assistance of GAMALIEL Hoyt. The sales support assistant, under direct supervision, was involved in the actual performance of all aspects of the surgical procedure including hemostasis, tissue retraction and incision, instrument management, patient positioning, and wound closure. DISPOSITION: Recovery room, stable. I attest to the content of the Intraoperative Record and any orders documented therein. Any exception s are noted below.
[2017-02-25] MEDS ORDERED: MAGNESIUM HYDROXIDE SUSP 30 ML UDC PO PRN (13:30)
[2017-02-25] MEDS ORDERED: SOD PHOSPHATE/SOD BIPHOSPHATE ENEMA 132 ML BTL PR PRN (13:30)
[2017-02-25] MEDS ORDERED: MoRPHine SULFATE 2 MG/ML CARP IV PRN (13:30)
[2017-02-25] MEDS ORDERED: TRAMADOL HCL 50 MG TAB PO PRN (13:30)
[2017-02-25] MEDS ORDERED: ZOLPIDEM TARTRATE 5 MG TAB PO PRN (13:30)
[2017-02-25] MEDS ORDERED: CEFAZOLIN IV 2,000 MG in DEXTROSE 5% 50ML 50 ML IV SCH (13:30)
[2017-02-25] MEDS ORDERED: BISACODYL 10 MG SUPP PR PRN (13:30)
[2017-02-25] MEDS ORDERED: ALUMINUM/MAGNESIUM/SIMETH (MAALOX MAX) 30 ML UDC PO PRN (13:30)
--- NOTE | 2017-02-25 14:10 | DIAGNOSTIC IMAGING REPORT ---
LEFT KNEE 2 VIEWS History: Left total knee arthroplasty. Degenerative arthritis. Postop. FINDINGS: The patient is status post a left total knee arthroplasty. The hardware is intact. No fracture or dislocation. Surgical drains are in place. IMPRESSION: Left total knee arthroplasty. No evidence for hardware complication. Electronically signed by: Irineo Sandoval M.D. 02/25/2017 2:09 PM Dictated Date/Time: 02/25/2017 1:59 PM
--- NOTE | 2017-02-25 14:10 | Anesthesiology Progress Note ---
Anesthesia Post Op Note Date & Time Feb 25, 2017 at 14:09 Vital Signs Pain Intensity: 0 Vital Signs Past 12 Hours Date Time Temp Pulse Resp B/P (MAP) Pulse Ox O2 Delivery O2 Flow Rate FiO2 02/25/17 14:00 78 17 98/58 98 Nasal Cannula 2 02/25/17 13:50 78 13 96/65 99 Nasal Cannula 2 02/25/17 13:40 77 15 95/65 98 Nasal Cannula 2 02/25/17 13:30 84 23 91/63 98 Nasal Cannula 2 02/25/17 13:20 37.2 80 20 97/58 95 Nasal Cannula 2 02/25/17 10:04 83 20 143/92 96 Room Air Notes Mental Status: alert / awake / arousable, participated in evaluation Pt Amnestic to Procedure: Yes Nausea / Vomiting: adequately controlled Pain: adequately controlled Airway Patency, RR, SpO2: stable & adequate BP & HR: stable & adequate Hydration State: stable & adequate Neuraxial Anesthesia: was administered, sensory block is resolving Anesthetic Complications: no major complications apparent
[2017-02-25] MEDS: KETOROLAC TROMETHAMINE 15 MG/ML VIAL IV. SCH ×2 (16:28→21:42)
[2017-02-25] MEDS: D5W AND 1/2NSS + 20MEQ KCL 1,000 ML IV SCH (16:28)
[2017-02-25] MEDS: CEFAZOLIN IV 2,000 MG in SYRINGE 0 ML IV SCH (19:40)
[2017-02-25] MEDS: ASPIRIN 81 MG ECTAB PO SCH (20:36)
[2017-02-25] MEDS: SENNA 8.6 MG TAB PO SCH (20:36)
[2017-02-25] MEDS: OXYCODONE HCL IR 5 MG TAB (IMMEDIATE RELEASE) PO PRN (20:38)
[2017-02-25] MEDS: ACETAMINOPHEN 500 MG TAB PO SCH (21:43)
[2017-02-26] MEDS: D5W AND 1/2NSS + 20MEQ KCL 1,000 ML IV SCH ×2 (01:44→11:26)
[2017-02-26 02:56] VITALS: BP 103/66; PULSE 76; TEMP 36.9; O2SAT 95
[2017-02-26] MEDS: CEFAZOLIN IV 2,000 MG in SYRINGE 0 ML IV SCH (03:03)
[2017-02-26] MEDS: KETOROLAC TROMETHAMINE 15 MG/ML VIAL IV. SCH ×2 (03:03→11:28)
[2017-02-26] MEDS: OXYCODONE HCL IR 5 MG TAB (IMMEDIATE RELEASE) PO PRN ×4 (04:20→20:10)
[2017-02-26] MEDS: ACETAMINOPHEN 500 MG TAB PO SCH ×3 (05:49→20:58)
[2017-02-26 06:51] LABS: HEMATOCRIT 34.3 % (37-47); MEAN CELL VOLUME 90.3 fL (80-100); MEAN CORPUSCULAR HEMOGLOBIN 29.2 pg (25-34); MEAN CORPUSCULAR HGB CONC 32.4 g/dl (32-36); MEAN PLATELET VOLUME 8.7 fL (7.4-10.4); PLATELET COUNT 303 K/uL (130-400)
[2017-02-26 07:23] VITALS: BP 114/74; PULSE 76; TEMP 36.7; O2SAT 96
[2017-02-26 07:27] LABS: BUN/CREATININE RATIO 22.4 (10-20); CALCIUM 8.2 mg/dl (8.5-10.1); CREATININE 0.8 mg/dl (0.60-1.20)
[2017-02-26] MEDS ORDERED: DEXAMETHASONE 4 MG TAB PO SCH (07:30)
--- NOTE | 2017-02-26 07:52 | Orthopedic Progress Note ---
Orthopedic Progress Note Date of Service Feb 26, 2017. Subjective Post OP Day: 1 Reports: feeling well, Denies: chest pain, SOB, nausea / vomiting, light headedness, calf pain Objective calves soft nontender, N/V intact, hip located, capillary refill less than 2 sec., dressing C/D/I, A&O x3, toes mobile, hemovac drainage (185/100CC PER SHIFT ) Date Time Temp Pulse Resp B/P (MAP) Pulse Ox O2 Delivery O2 Flow Rate FiO2 02/26/17 07:23 36.7 76 20 114/74 (87) 96 Room Air 02/26/17 02:56 36.9 76 16 103/66 (78) 95 Room Air 02/26/17 00:00 Room Air 02/25/17 23:00 36.7 81 16 95/58 (70) 93 Room Air 02/25/17 19:03 36.8 81 17 100/61 (74) 93 Room Air 02/25/17 17:29 36.4 77 18 105/64 (78) 95 Room Air 02/25/17 16:25 36.4 66 16 113/74 (87) 96 Room Air 02/25/17 15:25 98 Room Air 02/25/17 15:25 36.4 71 16 123/76 (92) 98 Nasal Cannula 3.0 02/25/17 14:49 36.4 71 18 109/73 (85) 98 Nasal Cannula 3.0 02/25/17 14:25 99 Nasal Cannula 2.0 02/25/17 14:25 95 Nasal Cannula 2.0 02/25/17 14:15 77 16 104/67 99 Nasal Cannula 2 02/25/17 14:10 37.0 76 16 106/63 99 Nasal Cannula 2 02/25/17 14:00 78 17 98/58 98 Nasal Cannula 2 02/25/17 13:50 78 13 96/65 99 Nasal Cannula 2 02/25/17 13:40 77 15 95/65 98 Nasal Cannula 2 02/25/17 13:30 84 23 91/63 98 Nasal Cannula 2 02/25/17 13:20 37.2 80 20 97/58 95 Nasal Cannula 2 02/25/17 10:04 83 20 143/92 96 Room Air Laboratory Results 24 Hours: Test 02/26/17 06:37 Hematocrit 34.3 % Hemoglobin 11.1 g/dL Assessment & Plan Assessment: POD#1 SP LEFT TKA Plan: PT/OT DVT PROPH- ASA 81MG BID PAIN MANAGEMENT- HARVINDER, TYLENOL DC PLANNING- DC HOME WEDS WITH ADVANTAGE.
--- NOTE | 2017-02-26 07:53 | Discharge Instructions ---
Discharge Instructions Date of Service Feb 26, 2017. Admission Reason for Admission: Left Knee Osteoarthritis Discharge Discharge Diagnosis / Problem: SP LEFT TKA Discharge Goals Goal(s): Decrease discomfort, Improve function, Increase independence Activity Recommendations Activity Limitations: per Instructions/Follow-up section . Instructions / Follow-Up Instructions / Follow-Up ACTIVITY RECOMMENDATIONS: SELF CARE INSTRUCTIONS AFTER TOTAL KNEE REPLACEMENT A. You may need to continue a physical therapy program after discharge from the hospital. There are several options available to you. Your doctor will assist you in selecting the best one for you. 1. An out-patient facility 2 to 3 times a week for therapy or home therapy. 2. Continue working on all exercises taught to you in the hospital. Your goals should be to increase bending of your knee to 90 degrees and beyond and to fully straighten your knee. B. You may progress at your own pace from walking with a walker or crutches to a cane; then to no assistive devices. C. Make walking a part of your daily routine. Be up as much as comfortable with rest periods throughout the day. Rest with leg elevation is very important. Use the ice wrap frequently for the first 3-4 weeks. D. There are no restrictions on activities. You may ride in a car, shop, participate in criminal justice social worker and all social activities. E. Wear the long elastic stockings (JOSE MANUEL hose) 20 hours a day for 2 weeks after surgery. They can be removed several times a day for laundering and for a bath. F. You may shower, no tub baths until cleared by your doctor. SPECIAL CARE INSTRUCTIONS: VERY IMPORTANT TO READ AND REVIEW A. There are a few signs you need to watch for after you are home. Call [facility] if you notice any of the followin. Increased severe knee pain. Some pain is expected especially when you exercise. 2. Increased swelling in your leg or knee; pain or swelling of the calf muscle in either lower leg. 3. Any fluid drainage from the incision. 4. Shortness of breath or chest pain. B. Please call [facility] at if you have any concerns or questions about your operation or recovery. The doctor or his nurse will return your call promptly. C. You must take antibiotics before dental work, bladder, bowel or other surgery. Your doctor will provide you with a permanent care to carry describing this precaution. IMPORTANT: * REMEMBER TO TAKE ASPIRIN, 81 MG, TWICE DAILY FOR 4 WEEKS UNLESS OTHERWISE DIRECTED. THIS IS YOUR BLOOD THINNER. * HIGH RISK PATIENTS MAY BE PRESCRIBED A STRONGER BLOOD THINNER. THIS WILL BE PROVIDED AT DISCHARGE. * CALL IF INCREASED PAIN, REDNESS, DRAINAGE OR FEVER GREATER THAT 101. * WEAR JOSE MANUEL HOSE 20 HOURS PER DAY FOR 2 WEEKS. * YOU MAY HAVE A LARGE BAND-AID LIKE DRESSING (SILVERON). THIS WILL REMAIN ON YOUR INCISION FOR 7 DAYS, THEN CAN BE REMOVED. IF INCISION IS LEAKING THROUGH DRESSING, CALL THE OFFICE .* ONCE REMOVED, YOU WILL SEE YOU HAVE A ZIPLINE CLOSURE. THIS IS IN PLACE OF RYLIE. DO NOT REMOVE. YOU MAY KEEP IT COVERED WITH A LIGHT DRESSING TO PREVENT SNAGGING. YOU MAY SHOWER. THIS WILL BE REMOVED AT YOUR 2 WEEK POST OP VISIT. FOLLOW UP VISIT: If appointment is not already scheduled: Please call [facility] to make a follow-up appointment for 2 weeks after your surgery at . Current Hospital Diet Patient's current hospital diet: Regular Diet Discharge Diet Recommended Diet: Regular Diet Procedures Procedures Performed: Left Total Knee Arthroplasty Pending Studies Studies pending at discharge: no Laboratory Results Hemoglobin A1c Test 02/11/17 08:34 Range/Units Estimated Average Glucose 100 mg/dl Hemoglobin A1c 5.1 4.5-5.6 % Medical Emergencies . Who to Call and When: Medical Emergencies: If at any time you feel your situation is an emergency, please call 911 immediately. . Non-Emergent Contact Non-Emergency issues call your: Surgeon . "Provider Documentation" section prepared by Liss Bustillo. . VTE Core Measure Inpt VTE Proph given/why not?: Other Anticoagulation, T.E.D. Fadi, SCD's [place] Drug Monitoring Program Search Results: patient reviewed within database, no issues identified
--- NOTE | 2017-02-26 07:55 | Anesthesiology Progress Note ---
Anesthesia Post Op Note Date & Time Feb 26, 2017 at 07:54 Vital Signs Pain Intensity: 5.0 Vital Signs Past 12 Hours Date Time Temp Pulse Resp B/P (MAP) Pulse Ox O2 Delivery O2 Flow Rate FiO2 02/26/17 07:23 36.7 76 20 114/74 (87) 96 Room Air 02/26/17 02:56 36.9 76 16 103/66 (78) 95 Room Air 02/26/17 00:00 Room Air 02/25/17 23:00 36.7 81 16 95/58 (70) 93 Room Air Notes Mental Status: alert / awake / arousable, participated in evaluation Pt Amnestic to Procedure: Yes Nausea / Vomiting: adequately controlled Pain: adequately controlled Airway Patency, RR, SpO2: stable & adequate BP & HR: stable & adequate Hydration State: stable & adequate Neuraxial Anesthesia: sensory block resolved Anesthetic Complications: no major complications apparent
[2017-02-26] MEDS: PANTOprazole SOD 40 MG TAB PO SCH (07:58)
[2017-02-26] MEDS: ASPIRIN 81 MG ECTAB PO SCH ×2 (08:12→20:58)
[2017-02-26] MEDS: MULTIVITAMIN TAB PO SCH (08:13)
[2017-02-26] MEDS: LOSARTAN/HCTZ 50-12.5 EA TAB PO SCH (08:13)
[2017-02-26] MEDS: CALCIUM CARBONATE 500 MG CHEWABLE PO SCH (09:23)
[2017-02-26 11:06] VITALS: BP 132/71; PULSE 76; TEMP 37; O2SAT 95
[2017-02-26 15:45] VITALS: BP 112/73; PULSE 76; TEMP 36.8; O2SAT 95
[2017-02-26] MEDS: SENNA 8.6 MG TAB PO SCH (20:58)
[2017-02-26] MEDS: CeleBREX 200 MG CAP PO SCH (20:58)
[2017-02-26 23:20] VITALS: BP 116/73; PULSE 70; TEMP 36.9; O2SAT 96
[2017-02-27] MEDS: OXYCODONE HCL IR 5 MG TAB (IMMEDIATE RELEASE) PO PRN ×3 (00:11→09:56)
[2017-02-27] MEDS: ACETAMINOPHEN 500 MG TAB PO SCH (05:48)
[2017-02-27 05:57] VITALS: BP 124/83; PULSE 72; TEMP 36.7; O2SAT 94
--- NOTE | 2017-02-27 07:06 | Orthopedic Progress Note ---
Orthopedic Progress Note Date of Service Feb 27, 2017. Subjective Post OP Day: 2 Reports: feeling well, complaints (some pain this AM in the thigh/knee), Denies : chest pain, SOB, nausea / vomiting, light headedness, calf pain Additional Notes: Feels that her blocks are wearing off. More pain in the thigh due to tourniquette. Pt appears comfortable. Hoping to go home today. Objective calves soft nontender, N/V intact, dressing C/D/I (silverlon intact), A&O x3, toes mobile Date Time Temp Pulse Resp B/P (MAP) Pulse Ox O2 Delivery O2 Flow Rate FiO2 02/27/17 05:57 36.7 72 16 124/83 (97) 94 Room Air 02/27/17 00:00 Room Air 02/26/17 23:20 36.9 70 16 116/73 (87) 96 Room Air 02/26/17 15:45 36.8 76 16 112/73 (86) 95 Room Air 02/26/17 15:30 Room Air 02/26/17 11:06 37.0 76 19 132/71 (91) 95 Room Air 02/26/17 07:50 Room Air 02/26/17 07:23 36.7 76 20 114/74 (87) 96 Room Air Assessment & Plan Assessment: POD#2 SP LEFT TKA Plan: PT/OT DVT PROPH- ASA 81MG BID PAIN MANAGEMENT- HARVINDER, TYLENOL DC PLANNING- DC HOME TODAY WITH ADVANTAGE HOME HEALTH
[2017-02-27] MEDS ORDERED: SENN1TAB80 PO (07:10)
[2017-02-27] MEDS ORDERED: RXC5 PO (07:10)
[2017-02-27] MEDS ORDERED: CLB200 PO (07:10)
[2017-02-27] MEDS ORDERED: ASPEC81 PO (07:10)
[2017-02-27] MEDS ORDERED: ACET-24 PO (07:10)
[2017-02-27] MEDS: LOSARTAN/HCTZ 50-12.5 EA TAB PO SCH (07:22)
[2017-02-27] MEDS: CALCIUM CARBONATE 500 MG CHEWABLE PO SCH (07:23)
[2017-02-27] MEDS: CeleBREX 200 MG CAP PO SCH (07:23)
[2017-02-27] MEDS: MULTIVITAMIN TAB PO SCH (07:23)
[2017-02-27] MEDS: ASPIRIN 81 MG ECTAB PO SCH (07:23)
[2017-02-27] MEDS: PANTOprazole SOD 40 MG TAB PO SCH (07:23)
[2017-02-27 08:12] VITALS: BP 124/83; PULSE 72; TEMP 36.7; O2SAT 94
[2017-02-27 08:33] VITALS: O2SAT 97
[2017-02-27 09:27] VITALS: PULSE 82; O2SAT 97
--- NOTE | 2017-03-18 11:13 | DISCHARGE SUMMARY ---
DISCHARGE DIAGNOSIS: Degenerative joint disease left knee. SECONDARY DIAGNOSIS: None. CONSULTS: None. COMPLICATIONS: None. PROCEDURE: The patient underwent a left total knee arthroplasty with Dr. Carr on 02/25/2017. BRIEF HISTORY: Please see previously dictated history and physical. HOSPITAL SUMMARY: The patient was admitted on the above day for the above procedure. Procedure went without complication. Postop day 1, the patient was feeling well without complaints. She denied chest pain or shortness of breath. Vital signs were stable. She was afebrile. Dressing was clean, dry and intact. She was neurovascularly intact. Calves were soft and nontender. Hemovac drained 185 and 100 mL per shift. Hemoglobin was 11.1. The patient began physical therapy per protocol. Postop day 2, the patient continued to improve. She had some pain in the thigh and knee, likely tourniquet pain. The patient was otherwise comfortable. Vital signs were stable. She was afebrile. Silverlon was clean, dry and intact. She was neurovascularly intact. Calves were soft and nontender. The patient continued to progress with physical therapy and was discharged to home later that day in stable condition. For further review please see the chart. Lab, x-ray data and discharge instructions as per chart.
== END 2017-02-27 10:38 | disposition home health service (06) | DRG 470 ==
LOC: C.ACU 09:49 → C.3E 10:50 → ENRESERV 14:15
PROC: 0SRD0J9 Replacement of Left Knee Joint with Synthetic Substitute, Cemented, Open Approach (ICD-10-PCS; principal; 2017-02-25 12:30)
DX: M17.12 Unilateral primary osteoarthritis, left knee (principal); M81.0 Age-related osteoporosis without current pathological fracture; E78.5 Hyperlipidemia, unspecified